=== PATIENT | male | born 1990 | race Caucasian/White ===

== ENCOUNTER 2019-03-11 17:07 | Emergency (ER) | payer MEDICAID ==
[~2019-03-11] VITALS: Ht 175.3 cm; Wt 72.0 kg
[~2019-03-11 17:07] MED LIST: IBUP-1984 PO
[2019-03-11 17:12] VITALS: BP 124/85
[2019-03-11] MEDS ORDERED: CLIN150C2 PO (17:23)
== END 2019-03-11 17:57 | disposition home or self-care (01) ==
LOC: ER 17:08
DX: S61.411A Laceration without foreign body of right hand, initial encounter (principal); G89.29 Other chronic pain; Z88.0 Allergy status to penicillin; Z79.2 Long term (current) use of antibiotics; W54.0XXA Bitten by dog, initial encounter; Y93.89 Activity, other specified; Y92.89 Other specified places as the place of occurrence of the external cause; Y99.8 Other external cause status
CPT/HCPCS: 12001; 73130; 99283

== ENCOUNTER 2020-05-08 21:22 | Emergency (ER) | payer MEDICAID ==
--- NOTE | 2020-05-08 21:22 | NUR ---
Pt screaming very loud and constantly at top of lungs and attempting to get out of hand cuffs and exit the room. [employer] officers and staff at bedside. Pt screaming profanities and the "n" word.
--- NOTE | 2020-05-08 21:28 | NUR ---
UNABLE TO GET VS AT THIS TIME, PATIENT COMBATIVE AND YELLING
--- NOTE | 2020-05-08 21:31 | NUR ---
Per , okay to rinse pt's face off with water.
[2020-05-08] MEDS ORDERED: DOXYCYCLINE 100MG CAPSULE PO STA (21:39)
[2020-05-08] MEDS ORDERED: ziprasidone IM 20mg inj **IM only IM ONE (21:40)
[2020-05-08] MEDS ORDERED: TETanus/Pertussis (Acell)/Diphther VAC/PF (Tdap-Adult) 0.5ml syringe IMVAC ONE (21:40)
[2020-05-08] MEDS ORDERED: diphenhydrAMINE 50 mg/ml inj IM ONE (21:40)
[2020-05-08] MEDS ORDERED: LORazepam 2 mg/ml vial IM ONE (21:40)
[2020-05-08] MEDS ORDERED: normal saline 1000ML IV soln IVB ONE (21:45)
[2020-05-08] MEDS ORDERED: sodium bicarbonate (8.4%) inj. 1 MEQ/ML ML IV ONE (21:50)
[2020-05-08 22:57] LABS: BASOPHILS % (AUTO) 0.3 % (0-1); EOSINOPHILS # (AUTO) 0.1 X10'3 (0-0.9); EOSINOPHILS % (AUTO) 0.5 % (0-6); HEMATOCRIT 45.4 % (42.0-52.0); HEMOGLOBIN 15.5 g/dl (14.0-17.9); LYMPHOCYTES # (AUTO) 1.1 X10'3 (1.1-4.8); LYMPHOCYTES % (AUTO) 5.9 % (21-51); MEAN CORPUSCULAR HEMOGLOBIN 31.4 PG (27.0-31.0); MEAN CORPUSCULAR HGB CONC 34.2 g/dL (33.0-36.5); MEAN CORPUSCULAR VOLUME 91.9 FL (78-98); MONOCYTES # (AUTO) 1.1 X10'3 (0-0.9); MONOCYTES % (AUTO) 5.6 % (2-12); NEUTROPHILS # (AUTO) 16.4 X10'3 (1.8-7.7); NEUTROPHILS % (AUTO) 87.7 % (42-75); PLATELET COUNT 318 X10'3 (140-440); RED BLOOD COUNT 4.94 X10'6 (4.70-6.10); RED CELL DISTRIBUTION WIDTH 13.7 % (11.5-14.5); WHITE BLOOD COUNT 18.7 X10'3 (4.5-11.0)
[2020-05-08 23:06] LABS: ALANINE AMINOTRANSFERASE 48 U/L (12-78); ALKALINE PHOSPHATASE 109 IU/L (46-116); ANION GAP 15 (8-16); ASPARTATE AMINO TRANSFERASE 63 U/L (10-37); BILIRUBIN,TOTAL 0.7 MG/DL (0.1-1.0); BLOOD UREA NITROGEN 12 MG/DL (7-18); CALCIUM 8.7 MG/DL (8.5-10.1); CHLORIDE 101 MMOL/L (99-107); CREATININE 0.92 MG/DL (0.60-1.10); GLUCOSE 88 MG/DL (70-104); POTASSIUM 3.1 MMOL/L (3.5-5.1); SODIUM 138 MMOL/L (135-145); TOTAL CARBON DIOXIDE 21.6 MMOL/L (24-32); eGFR > 90 ML/MIN
[2020-05-08 23:08] LABS: PARTIAL THROMBOPLASTIN TIME 28 SECONDS (22-32)
[2020-05-08 23:18] LABS: ETHANOL 0.229 GM/DL (0.0-0.010); LIPASE < 50 U/L (73-393); MAGNESIUM 2.2 MG/DL (1.5-2.4)
[2020-05-08 23:27] LABS: CREATINE KINASE 1347 U/L (39-308)
[2020-05-08] MEDS ORDERED: DOXY100C2 PO (23:36)
== END 2020-05-09 00:26 ==
LOC: ER 21:22
DX: S00.03XA Contusion of scalp, initial encounter (principal); F10.129 Alcohol abuse with intoxication, unspecified; G89.29 Other chronic pain; Z72.89 Other problems related to lifestyle; Z88.0 Allergy status to penicillin; Z79.899 Other long term (current) drug therapy; X58.XXXA Exposure to other specified factors, initial encounter; Y93.89 Activity, other specified; Y92.89 Other specified places as the place of occurrence of the external cause; Y99.8 Other external cause status; Y90.0 Blood alcohol level of less than 20 mg/100 ml
CPT/HCPCS: 36415; 80053; 80320; 82550; 83690; 83735; 83874; 85025; 85610; 85730; 96361; 96372; 96374; 99284; J1200; J2060; J3486; J7030; 90715